=== PATIENT | female | born 1990 | race Two or more races ===

== ENCOUNTER 2021-07-11 10:42 | Emergency (ER) | payer MEDICAID, OTHER ==
[~2021-07-11] VITALS: Ht 175.3 cm; Wt 109.8 kg
[2021-07-11 11:04] VITALS: BP 123/66
[2021-07-11 11:12] LABS: Urine Bacteria NONE SEEN /hpf (None Seen); Urine Blood Negative /uL (Negative); Urine Mucus FEW (None Seen); Urine Specific Gravity 1.026 (1.001-1.035); Urine WBC 9 /hpf (0 - 5)
[2021-07-11 11:35] LABS: Basophils # (auto) 0 10 ^3/uL (0-0.2); Basophils % (auto) 0.6 % (0.0-2.0); Eosinophils # (auto) 0.1 10 ^3/uL (0-0.8); Eosinophils % (auto) 1.9 % (0.0-7.0); Hematocrit 38.7 % (36.0-46.0); Hemoglobin 13.7 g/dL (12.2-16.2); Lymphocytes % (auto) 33.9 % (10.0-50.0); Mean Corpuscular Hgb Conc. 35.3 g/dL (32.0-36.0); Mean Corpuscular Volume 90.8 fL (80.0-100.0); Monocytes # (auto) 0.3 10 ^3/uL (0-1.3); Monocytes % (auto) 4.8 % (0.0-12.0); Neutrophils # (auto) 3.4 10 ^3/uL (1.6-8.6); Neutrophils % (auto) 58.8 % (37.0-80.0); Nucleated Red Blood Cells % 0.1 %; Red Blood Cells 4.26 10^6/uL (4.0-5.20); Red Cell Distribution Width 12.7 % (11.8-14.3); White Blood Cell 5.8 10^3/uL (4.4-10.8)
[2021-07-11 11:59] LABS: BUN/Creatinine Ratio 17.9; Potassium 4.3 mmol/L (3.5-5.1)
[2021-07-11] MEDS ORDERED: CIPR-173 PO (12:15)
== END 2021-07-11 12:24 | disposition home or self-care (01) ==
LOC: ER 10:42
DX: N39.0 Urinary tract infection, site not specified (principal); Z32.02 Encounter for pregnancy test, result negative
CPT/HCPCS: 36415; 80048; 81001; 81025; 84702; 85025